=== PATIENT | female | born 1955 | race Caucasian/White ===

== ENCOUNTER 2020-04-20 14:21 | Outpatient (RCR) | payer OTHER ==
[~2020-04-20] VITALS: Ht 167.7 cm; Wt 71.8 kg
[2020-04-20] MEDS ORDERED: MV-M1TAB57 PO (14:47)
[2020-04-21] MEDS ORDERED: hydrocodone PO (08:22)
[2020-04-21] MEDS ORDERED: NAPR220T66 PO (08:22)
[2020-04-21] MEDS ORDERED: PHEN-640 PO (11:44)
[2020-04-21] MEDS ORDERED: TMSL.4C PO (11:44)
[2020-04-21] MEDS ORDERED: TRM50T PO (11:44)
[2020-04-21] MEDS ORDERED: NITR-65 PO (11:44)
== END 2020-04-20 14:51 | disposition home or self-care (01) ==
LOC: PREOP 14:21
PROVIDERS: ATTEND Urology
DX: Z01.818 Encounter for other preprocedural examination (principal)

== ENCOUNTER 2020-04-21 07:50 | Day surgery (SDC) | payer BC ==
[2020-04-21] VITALS (10 sets, daily range): BP systolic 85–145; BP diastolic 43–80
[~2020-04-21] VITALS: Ht 167.7 cm; Wt 71.8 kg
[~2020-04-21 07:50] MED LIST: MV-M1TAB57 PO
[2020-04-21] MEDS ORDERED: cefTRIAXone FOR IV USE 1,000 MG in WATER (STERILE) FOR INJECTION 10 ML IV ONE (08:15)
[2020-04-21] MEDS ORDERED: LACTATED RINGERS 1,000 ML IV PRN (08:15)
--- NOTE | 2020-04-21 08:17 | Progress Note-Pre Operative ---
Pre-Operative Progress Note H&P Reviewed The H&P was reviewed, patient examined and no changes noted. Date Seen by Provider: Apr 21, 2020 Time Seen by Provider: 08:16 Date H&P Reviewed: Apr 21, 2020 Time H&P Reviewed: 08:16 Pre-Operative Diagnosis: RT PROXIMAL/UPJ URETERAL STONE YOHANNES MUELLER MD Apr 21, 2020 08:17
--- NOTE | 2020-04-21 08:18 | Progress Note-Post Operative ---
Post-Operative Progess Note Surgeon (s)/Floor Press Operator (s) Surgeon YOHANNES MUELLER MD Floor Press Operator: NONE Pre-Operative Diagnosis RT PROXIMAL/UPJ URETERAL STONE Post-Operative Diagnosis SAME Procedure & Operative Findings Date of Procedure 04/21/20 Procedure Performed/Findings CYSTOSCOPY WITH RT URETERAL STONE MANIPULATION AND INSERTION OF STENT Anesthesia Type GENERAL Estimated Blood Loss Estimated blood loss (mL): NONE Specimens/Packing Specimens Removed NONE Packing: NONE YOHANNES MUELLER MD Apr 21, 2020 08:18
--- NOTE | 2020-04-21 08:21 | Discharge Inst-Urology ---
Discharge Inst-Urology Reconcile Patient Problems Problems Reviewed?: Yes Final Diagnosis RT PROXIMAL/UPJ URETERAL STONE Patient Instructions/Follow Up Plan/Assessment/Instructions Please make appointment to been seen in office Friday 04/27 or Saturday 04/28, KUB prior to it. Increase oral fluids for 48 hours and then as needed. Diet and Activity as tolerated. If questions or concerns contact your physician Or seek help at emergency department. YOHANNES MUELLER MD Apr 21, 2020 08:21
[2020-04-21] MEDS ORDERED: NAPR220T66 PO (08:22)
[2020-04-21] MEDS ORDERED: hydrocodone PO (08:22)
--- NOTE | 2020-04-21 08:30 | Diagnostic Imaging Report ---
INDICATION: Pre-cystoscopy evaluation. COMPARISON: None FINDINGS: Single supine radiograph view of the abdomen was obtained and demonstrates 1 cm calculus projecting over the region of the right renal pelvis. No other unexpected extraosseous calcifications or radiopaque foreign bodies are seen. Small bowel loops are nondistended. There is no large collection of free intraperitoneal air. Osseous structures show no acute abnormalities. IMPRESSION: 1. 1 cm calculus projecting over the right renal pelvis. 2. Nonobstructive small bowel gas pattern. Dictated by: Dictated on workstation # [id number]
[2020-04-21] MEDS ORDERED: proPOfol 200 MG/20 ML (DIPRIVAN) VIAL IV ONE (09:05)
[2020-04-21] MEDS ORDERED: SEVOFLURANE (ULTANE) 15 ML INHAL SOLN ONE ×2 (09:05→09:38)
[2020-04-21] MEDS ORDERED: LIDOCAINE PF 2% 5 ML (XYLOCAINE) VIAL ONE (09:05)
[2020-04-21] MEDS ORDERED: ONDANSETRON 4 MG/2 ML (SDV) Z0FRAN ONE (09:05)
[2020-04-21] MEDS ORDERED: fentaNYL INJECTION 100 MCG/2 ML AMP ONE (09:06)
[2020-04-21] MEDS ORDERED: MIDAZOLAM 2 MG/2 ML (VERSED) VIAL ONE (09:06)
[2020-04-21] MEDS ORDERED: GLYCOPYRROLATE 0.2 MG/ML (ROBINUL) 2 ML VIAL ONE (09:38)
[2020-04-21] MEDS ORDERED: PHENYLEPHRINE 100 MCG/ML 10 ML (ANESTHESIA) SYR ONE (09:38)
--- NOTE | 2020-04-21 09:48 | Progress Note-Post Operative ---
Post-Operative Progess Note Surgeon (s)/Head Char Filter Tank Tender (s) Surgeon YOHANNES MUELLER MD Head Char Filter Tank Tender: NONE Pre-Operative Diagnosis RT PROXIMAL/UPJ URETERAL STONE Post-Operative Diagnosis SAME Procedure & Operative Findings Date of Procedure 04/21/20 Procedure Performed/Findings CYSTOSCOPY WITH URETERAL STONE MANIPULATION AND INSERTION OF STENT Anesthesia Type GENERAL Estimated Blood Loss Estimated blood loss (mL): NONE Specimens/Packing Specimens Removed NONE Packing: NONE YOHANNES MUELLER MD Apr 21, 2020 09:48
[2020-04-21] MEDS ORDERED: HYDROmorphone 2 MG/ML VIAL (DILAUDID) IV ONE (10:00)
[2020-04-21] MEDS ORDERED: ONDANSETRON 4 MG/2 ML (SDV) Z0FRAN IVP PRN (10:00)
--- NOTE | 2020-04-21 10:19 | Diagnostic Imaging Report ---
INDICATION: Fluoroscopic guidance provided during uteroscopy. COMPARISON: None. TOTAL FLUOROSCOPY TIME: 18.8 seconds TOTAL NUMBER FLUOROSCOPIC IMAGES SAVED: 2 FINDINGS: Fluoroscopic guidance was provided intraoperatively. Total of 2 images are obtained and show indwelling right-sided double-J ureteral stent. Please note, interpreting radiologist was not present during the procedure. IMPRESSION: 1. Fluoroscopic guidance provided during ureteroscopy. Dictated by: Dictated on workstation # [id number]
[2020-04-21] MEDS ORDERED: TMSL.4C PO (11:44)
[2020-04-21] MEDS ORDERED: TRM50T PO (11:44)
[2020-04-21] MEDS ORDERED: NITR-65 PO (11:44)
[2020-04-21] MEDS ORDERED: PHEN-640 PO (11:44)
--- NOTE | 2020-04-21 13:01 | OPERATIVE REPORT ---
DATE OF SERVICE: 04/21/2020 PREOPERATIVE DIAGNOSIS: Right proximal - UPJ stone. POSTOPERATIVE DIAGNOSIS: Right proximal - UPJ stone. OPERATION PERFORMED: Cystoscopy, right ureteral stone manipulation and insertion of a stent. SURGEON: Edis Mueller MD ANESTHESIA: General. COMPLICATIONS: None. DESCRIPTION OF PROCEDURE: Under satisfactory general anesthesia, the patient in lithotomy position, genitalia were prepped and draped in the usual sterile fashion. A 23-[place]izen [place] cystoscope was introduced in the bladder. Bladder was normal with sluggish efflux on the right side. Using the foroblique lens, I passed a 6-[place]izen [place] 26 cm stent. I manipulated the stone, bypassed it, removed the guidewire and the stent was seen jetting nicely proximally fluoroscopically and distally endoscopically. Bladder was evacuated and the cystoscope was removed. The patient tolerated the procedure and anesthesia well and was sent to recovery room in stable condition. PLAN: ESWL next Monday. Job ID: [id number] DocumentID: [id number] Dictated Date: 04/21/2020 09:51:56 [place] Operator Date: 04/21/2020 13:00:13 Dictated By: EDIS MUELLER MD
== END 2020-04-21 12:00 | disposition home or self-care (01) ==
LOC: SDC 07:50
PROVIDERS: ATTEND Urology
DX: N20.1 Calculus of ureter (principal); K21.9 Gastro-esophageal reflux disease without esophagitis; Z79.899 Other long term (current) drug therapy; Z88.5 Allergy status to narcotic agent; Z91.041 Radiographic dye allergy status; Z20.828 Contact with and (suspected) exposure to other viral communicable diseases
CPT/HCPCS: 52330; 52332; 74018; 76000; 87081; C2625; U0002; 87635

== ENCOUNTER → 2020-04-27 | Outpatient (CLI) | payer BC ==
[~2020-04-27] MED LIST changes: +NAPR220T66 PO; +NITR-65 PO; +PHEN-640 PO; +TMSL.4C PO; +TRAM50TA3 PO; +TRM50T PO; +hydrocodone PO
--- NOTE | 2020-04-27 13:23 | Diagnostic Imaging Report ---
EXAMINATION: Abdomen 1 view HISTORY: RT UPPER URETERAL STONE COMPARISON: Abdominal radiograph 04/19/2020 FINDINGS: There is moderate amount of gas and stool throughout the colon. Nonobstructive bowel gas pattern. There is a 0.9 cm calcification overlying the right ureter, unchanged from 04/21/2020. Interval placement of a right ureteral stent. The lung bases are clear. The osseous structures are intact. IMPRESSION: Right ureteral stent with a 0.9 cm calculus overlying the proximal right ureter, unchanged. Dictated by: Dictated on workstation # [id number]
== END ==
LOC: RAD 13:02
PROVIDERS: ATTEND Urology
DX: N20.1 Calculus of ureter (principal); Z96.0 Presence of urogenital implants
CPT/HCPCS: 74018

== ENCOUNTER 2020-04-28 05:29 | Outpatient (RCR) | payer BC ==
[~2020-04-28] VITALS: Ht 167.7 cm; Wt 71.8 kg
[~2020-04-28 05:29] MED LIST changes: -TRAM50TA3 PO
[2020-04-29] MEDS ORDERED: PHEN-640 PO (07:18)
[2020-04-29] MEDS ORDERED: TMSL.4C PO ×2 (07:18→10:37)
[2020-04-29] MEDS ORDERED: TRAM50TA3 PO ×2 (07:18→10:37)
[2020-04-29] MEDS ORDERED: NITR-65 PO (10:37)
== END 2020-04-28 12:14 | disposition home or self-care (01) ==
LOC: PREOP 05:29
PROVIDERS: ATTEND Urology
DX: Z01.812 Encounter for preprocedural laboratory examination (principal); N20.1 Calculus of ureter; Z20.828 Contact with and (suspected) exposure to other viral communicable diseases
CPT/HCPCS: 87635

== ENCOUNTER 2020-04-29 06:33 | Day surgery (SDC) | payer BC ==
[2020-04-29] VITALS (8 sets, daily range): BP systolic 112–131; BP diastolic 57–68
[~2020-04-29] VITALS: Ht 167 cm; Wt 71.8 kg
[2020-04-29] MEDS ORDERED: cefTRIAXone FOR IV USE 1,000 MG in WATER (STERILE) FOR INJECTION 10 ML IV ONE (06:45)
[2020-04-29] MEDS ORDERED: CATHETER FLUSH 10 ML SYR IV PRN (07:00)
[2020-04-29] MEDS: LACTATED RINGERS 1,000 ML IV PRN ×2 (07:14→09:08)
[2020-04-29] MEDS ORDERED: TMSL.4C PO ×2 (07:18→10:37)
[2020-04-29] MEDS ORDERED: PHEN-640 PO (07:18)
[2020-04-29] MEDS ORDERED: TRAM50TA3 PO ×2 (07:18→10:37)
--- NOTE | 2020-04-29 07:20 | Progress Note-Pre Operative ---
Pre-Operative Progress Note H&P Reviewed The H&P was reviewed, patient examined and no changes noted. Date Seen by Provider: Apr 29, 2020 Time Seen by Provider: 07:19 Date H&P Reviewed: Apr 29, 2020 Time H&P Reviewed: 07:19 Pre-Operative Diagnosis: RT RENAL STONE YOHANNES MUELLER MD Apr 29, 2020 07:19
--- NOTE | 2020-04-29 07:34 | Diagnostic Imaging Report ---
INDICATION: ESWL. COMPARISON STUDY: KUB from 2 days ago. FINDINGS: Supine view of the abdomen demonstrates a right ureteral stent in place. A calculi overlying the proximal stent is unchanged in position. Bowel gas pattern appears unremarkable. Mild constipation is present. IMPRESSION: 1. No change in position of the right ureteral calculi or stent. 2. Developing constipation. Dictated by: Dictated on workstation # [id number]
[2020-04-29] MEDS ORDERED: proPOfol 200 MG/20 ML (DIPRIVAN) VIAL IV ONE (08:23)
[2020-04-29] MEDS ORDERED: SEVOFLURANE (ULTANE) 15 ML INHAL SOLN ONE ×3 (08:23→08:53)
[2020-04-29] MEDS ORDERED: ONDANSETRON 4 MG/2 ML (SDV) Z0FRAN ONE (08:23)
[2020-04-29] MEDS ORDERED: LIDOCAINE PF 2% 5 ML (XYLOCAINE) VIAL ONE (08:23)
[2020-04-29] MEDS ORDERED: MIDAZOLAM 2 MG/2 ML (VERSED) VIAL ONE (08:24)
[2020-04-29] MEDS ORDERED: fentaNYL INJECTION 100 MCG/2 ML AMP ONE (08:24)
--- NOTE | 2020-04-29 08:49 | Progress Note-Post Operative ---
Post-Operative Progess Note Surgeon (s)/Poultry Inseminator (s) Surgeon YOHANNES MUELLER MD Poultry Inseminator: NONE Pre-Operative Diagnosis RT RENAL STONE Post-Operative Diagnosis SAME Procedure & Operative Findings Date of Procedure 04/29/20 Procedure Performed/Findings RT ESWL AND CYSTO WITH REMOVAL OF STENT Anesthesia Type GENERAL Estimated Blood Loss Estimated blood loss (mL): NONE Specimens/Packing Specimens Removed NONE TO PATH Packing: NONE YOHANNES MUELLER MD Apr 29, 2020 08:49
--- NOTE | 2020-04-29 08:51 | Discharge Inst-Urology ---
Discharge Inst-Urology Reconcile Patient Problems Problems Reviewed?: Yes Final Diagnosis RT UPJ STONE Patient Instructions/Follow Up Plan/Assessment/Instructions Please make appointment to been seen in office Thursday 05/11. KUB prior to it KUB on way home Post ESWL instructions Increase oral fluids for 48 hours and then as needed. Diet and Activity as tolerated. If questions or concerns contact your physician Or seek help at emergency department. YOHANNES MUELLER MD Apr 29, 2020 08:51
[2020-04-29] MEDS ORDERED: FUROSEMIDE 40 MG/4 ML INJ (LASIX) ONE (08:56)
[2020-04-29] MEDS ORDERED: KETOROLAC 30 MG/ML VIAL ONE (08:56)
--- NOTE | 2020-04-29 09:31 | Anesthesia-General Post-Op ---
General Patient Condition Mental Status/LOC: Same as Preop Cardiovascular: Satisfactory Nausea/Vomiting: Absent Respiratory: Satisfactory Pain: Controlled Complications: Absent Post Op Complications Complications None Follow Up Care/Instructions Patient Instructions None needed. Anesthesia/Patient Condition Patient Condition Patient is doing well, no complaints, stable vital signs, no apparent adverse anesthesia problems. No complications reported per nursing. JENA MORA CRNA Apr 29, 2020 09:31
[2020-04-29] MEDS ORDERED: NITR-65 PO (10:37)
--- NOTE | 2020-04-29 10:52 | OPERATIVE REPORT ---
DATE OF SERVICE: 04/29/2020 PREOPERATIVE DIAGNOSIS: Right ureteropelvic junction stone. POSTOPERATIVE DIAGNOSIS: Right ureteropelvic junction stone. OPERATION PERFORMED: Right ESWL with cystoscopy and removal of right stent. SURGEON: Edis Mueller MD ANESTHESIA: General. COMPLICATIONS: None. DESCRIPTION OF PROCEDURE: Under satisfactory general anesthesia, the patient in supine position, the right UPJ stone was localized. Shocks were started delivered as a rising kV to 6. The stone was breaking nicely, so we decided to remove the stent with the patient in a frog position, genitalia were prepped and draped in the usual sterile fashion. Flexible cystoscope was introduced in the bladder. The distal end of the stent was visualized and grasped with grasping forceps and removed completely. We put the patient back supine and continue blasting the stone for a total of 2500 shocks was complete fragmentation of the stone. The patient received 40 mg of Lasix and 30 mg of Toradol IV at the end of the procedure. She tolerated the procedure and anesthesia well and was sent to recovery room in stable condition. Job ID: [id number] DocumentID: [id number] Dictated Date: 04/29/2020 09:06:47 Convention Manager Date: 04/29/2020 10:52:03 Dictated By: EDIS MUELLER MD
--- NOTE | 2020-04-29 11:25 | Diagnostic Imaging Report ---
INDICATION: Post lithotripsy evaluation. COMPARISON: Imaging from the same date. TECHNIQUE: Two radiographs of the abdomen are obtained dated April 29, 2020. FINDINGS: Previously noted right ureteral stent is no longer visualized. Previously noted calcification overlying the expected location of the proximal right ureter is less discrete with vague increased density within the region. No additional calcifications are noted overlying the renal shadows or the expected course of the bilateral ureters. Nonobstructive bowel gas pattern. Scattered osseous degenerative changes without acute osseous abnormality. IMPRESSION: Interval removal of previously noted right-sided ureteral stent. Previously noted stone overlying the proximal right ureter is less discrete and faint status post lithotripsy. Dictated by: Dictated on workstation # [id number]
== END 2020-04-29 11:10 | disposition home or self-care (01) ==
LOC: SDC 06:33
PROVIDERS: ATTEND Urology
DX: N20.1 Calculus of ureter (principal); Z88.5 Allergy status to narcotic agent; Z91.041 Radiographic dye allergy status
CPT/HCPCS: 74018; 87081

== ENCOUNTER 2020-05-11 15:14 | Outpatient (RCR) | payer BC | END 2020-08-09 | LOC: LAB 15:14 | PROVIDERS: ATTEND Urology | DX: N20.0 Calculus of kidney (principal) ==

== ENCOUNTER → 2020-05-11 | Outpatient (CLI) | payer BC ==
[~2020-05-11] MED LIST changes: +TRAM50TA3 PO
--- NOTE | 2020-05-11 14:03 | Diagnostic Imaging Report ---
Supine abdomen at 1:19. Indication: Right nephrolithiasis. The prior exam of 04/29/2020 noted a vague area of increased density overlying the proximal right ureter. That finding is not identified on this study. There is no pathologic calcification noted. However the right renal contour and the right pelvis are partially obscured by bowel gas and fecal material. Impression: There is no evidence for pathologic calcification. Dictated by: Dictated on workstation # [id number]
== END ==
LOC: RAD 13:10
PROVIDERS: ATTEND Urology
DX: N20.2 Calculus of kidney with calculus of ureter (principal)
CPT/HCPCS: 74018